=== PATIENT | male | born 1990 | race Caucasian/White ===

== ENCOUNTER 2021-03-17 15:39 | Emergency (ER) | payer SELFPAY ==
[2021-03-18 20:38] LABS: SARS-CoV-2 PCR by NAA Not Detected (NotDetected)
== END 2021-03-17 16:34 | disposition home or self-care (01) ==
LOC: CSHERS 15:39
DX: J06.9 Acute upper respiratory infection, unspecified (principal); Z20.822 Contact with and (suspected) exposure to COVID-19
CPT/HCPCS: 71045; 87635; U0003; U0005